=== PATIENT | female | born 1960 | race Caucasian/White ===

== ENCOUNTER → 2020-10-23 | Outpatient (CLI) | payer MEDICARE, OTHER | LOC: KOH-I 11:55 | DX: M54.2 Cervicalgia (principal) | CPT/HCPCS: 72050 ==

== ENCOUNTER → 2021-05-31 | Outpatient (CLI) | payer MEDICARE | LOC: KOH-I 12:11 | DX: M79.672 Pain in left foot (principal); M25.561 Pain in right knee; M25.461 Effusion, right knee; M61.9 Calcification and ossification of muscle, unspecified | CPT/HCPCS: 73560; 73630 ==

== ENCOUNTER → 2021-12-09 | Outpatient (CLI) | payer MEDICARE | LOC: EMI 11:12 | DX: Z53.9 Procedure and treatment not carried out, unspecified reason (principal) | CPT/HCPCS: 73718 ==